=== PATIENT | female | born 2000 | race American Indian/Alaskan Native ===

== ENCOUNTER 2022-02-14 09:46 | Emergency (ER) | payer MEDICAID ==
[2022-02-14 10:02] VITALS: BP 109/80
--- NOTE | 2022-02-14 11:02 | Emergency Department Report ---
Minor Respiratory - HPI Chief Complaint: Sore Throat Stated Complaint: SORETHROAT Time Seen by Provider: 02/14/22 10:55 Duration: 2 Days Pain Location: Throat Severity: mild Minor Respiratory: Yes Sore Throat, Yes Able to Tolerate Fluids, No Rhinorrhea, No Ear Pain, No Cough, No Sick Contacts, No Hemoptysis, No Chest Pain, No Shortness of Breath, No Fever Other History: Patient is a 21-year-old female that comes to the ER with a sore throat. Reports white spots in the back of her throat. No fever but does endorse chills. Patient has no cough. No abdominal pain. No back pain. No dysuria. Patient is ambulatory, not ill nontoxic on arrival to ER ED Review of Systems ROS: Stated complaint: SORETHROAT Other details as noted in HPI Comment: All other systems reviewed and negative ED Past Medical Hx - Past Medical History Previous Medical History?: No - Surgical History Past Surgical History?: Yes Hx Appendectomy: Yes - Medications Home Medications: Home Medications Medication Instructions Recorded Confirmed Last Taken Type Amoxicillin [Trimox CAP] 500 mg PO BID #20 capsule 02/14/22 Unknown Rx Minor Respiratory Exam - Exam General: Vital signs noted. No distress. Alert and acting appropriately. HEENT: Yes Pharyngeal Erythema, Yes Pharyngeal Exudates, Yes Moist Mucous Membranes, No Rhinorrhea, No Conjuctival Injection, No Frontal Tenderness, No Maxillary Tenderness Ear: Neither TM Bulge, Neither TM Erythema, Neither EAC Pain, Neither EAC Discharge Neck: Yes Supple, No Adenopathy Lungs: Yes Good Air Exchange, No Wheezes, No Ronchi, No Stridor, No Cough, No Labored Respirations, No Retractions, No Use of Accessory Muscles, No Other Abnormal Lung Sounds Heart: Yes Regular, No Murmur Abdomen: Yes Normal Bowel Sounds, No Tenderness, No Peritoneal Signs Skin: No Rash, No Edema Neurologic: Alert and oriented, no deficits. Musculoskeletal: Unremarkable. ED Course Vital Signs 02/14/22 10:01 Temperature 98.3 F Pulse Rate 87 Respiratory 18 Rate Blood Pressure 109/80 O2 Sat by Pulse 100 Oximetry ED Medical Decision Making - Medical Decision Making Vital Signs 02/14/22 02/14/22 02/14/22 10:01 11:04 11:26 Temperature 98.3 F 98.3 F Pulse Rate 87 87 Respiratory 18 16 16 Rate Blood Pressure 109/80 O2 Sat by Pulse 100 98 100 Oximetry Lab Results 02/14/22 Range/Units Unknown Group A Strep Rapid Negative (Negative) Exudative pharyngitis on exam. ABCs intact. Taking p.o. without difficulty. Patient being discharged home on amoxicillin. Patient verbalizes understanding of discharge plan of care including diet, activity medications and follow-up. - Differential Diagnosis URI Critical care attestation.: If time is entered above; I have spent that time in minutes in the direct care of this critically ill patient, excluding procedure time. ED Disposition Clinical Impression: Exudative pharyngitis Disposition: HOME / SELF CARE / HOMELESS Is pt being admited?: No Does the pt Need Aspirin: No Condition: Stable Instructions: Pharyngitis, [id number] Additional Instructions: Medication as ordered today until gone. Motrin or Tylenol for pain or fever Prescriptions: Amoxicillin [Trimox CAP] 500 mg PO BID #20 capsule Referrals: TAWANNA OWEN MD [Primary Care Provider] - 3-5 Days Forms: Work/School Release Form(ED) Time of Disposition: 11:02
== END 2022-02-14 11:26 | disposition home or self-care (01) ==
LOC: ED 09:46
DX: J02.9 Acute pharyngitis, unspecified (principal); Z90.89 Acquired absence of other organs
CPT/HCPCS: 87116; 87430; 99282; 99283

== ENCOUNTER 2022-02-21 14:40 | Emergency (ER) | payer MEDICAID ==
[2022-02-21] MEDS ORDERED: ONDANSETRON 4 MG/2 ML INJ IV ONE (17:58)
[2022-02-21] MEDS ORDERED: SODIUM CHLORIDE 0.9% 1000 ML 1,000 ML IV ONE (17:58)
[2022-02-21 18:02] LABS: Hemoglobin 14.1 gm/dl (10.1-14.3); Mean Corpuscular HGB Conc 34 % (30-34); Mean Corpuscular Volume 89 fl (79-97); Platelet Count 298 K/mm3 (140-440); Red Cell Distribution Width 12.9 % (13.2-15.2)
--- NOTE | 2022-02-21 18:03 | Emergency Department Report ---
ED General Adult HPI - General Chief complaint: Abdominal Pain Stated complaint: VOMITTING/POSS FOOD POISONING Time Seen by Provider: 02/21/22 17:53 Source: patient Mode of arrival: Ambulatory Limitations: No Limitations - History of Present Illness Initial comments: 21-year-old female came in today with concerns of possible food poisoning. According patient she has been having vomiting and also diarrhea for the past 1 day. Patient stated that all her families are okay. Patient recently traveled to [place]. Patient denies any other symptoms except for nausea. Patient, denies any fever shortness with dizziness blurred vision lightheadedness headache tinnitus ear pain runny nose sore throat loss of taste loss of smell chest pain palpitation short of breath cough abdominal pain constipation dysuria myalgia arthralgia new rash heat or cold intolerance. Severity scale (0 -10): 6 - Related Data Previous Rx's Medication Instructions Recorded Last Taken Type Amoxicillin [Trimox CAP] 500 mg PO BID #20 capsule 02/14/22 Unknown Rx Loperamide [Imodium] 2 mg PO Q2HR 6 Days #8 capsule 02/21/22 Unknown Rx Ondansetron (Nf) [Zofran TAB] 4 mg PO Q8HR PRN 5 Days #12 tablet 02/21/22 Unknown Rx Allergies Allergy/AdvReac Type Severity Reaction Status Date / Time No Known Allergies Allergy Verified 02/21/22 17:55 ED Review of Systems ROS: Stated complaint: VOMITTING/POSS FOOD POISONING Other details as noted in HPI Comment: All other systems reviewed and negative Constitutional: see HPI Eyes: as per HPI ENT: as per HPI Respiratory: see HPI Cardiovascular: as per HPI Endocrine: see HPI Gastrointestinal: nausea, vomiting, diarrhea. denies: abdominal pain (GENERALIZED DISCOMFORT; NOT PAIN), constipation, hematemesis, melena, hematochezia Genitourinary: as per HPI Musculoskeletal: as per HPI Skin: as per HPI Neurological: as per HPI Psychiatric: as per HPI Hematological/Lymphatic: as per HPI ED Past Medical Hx - Past Medical History Previous Medical History?: No - Surgical History Hx Appendectomy: Yes - Social History Smoking Status: Never Smoker Substance Use Type: None - Medications Home Medications: Home Medications Medication Instructions Recorded Confirmed Last Taken Type Amoxicillin [Trimox CAP] 500 mg PO BID #20 capsule 02/14/22 02/21/22 Unknown Rx Loperamide [Imodium] 2 mg PO Q2HR 6 Days #8 capsule 02/21/22 Unknown Rx Ondansetron (Nf) [Zofran TAB] 4 mg PO Q8HR PRN 5 Days #12 tablet 02/21/22 Unknown Rx ED Physical Exam - General Limitations: No Limitations General appearance: alert, in no apparent distress - Head Head exam: Present: atraumatic, normal inspection - Eye Eye exam: Present: normal appearance, PERRL, EOMI Pupils: Present: normal accommodation - ENT ENT exam: Present: normal exam, normal orophraynx, mucous membranes dry - Neck Neck exam: Present: normal inspection - Respiratory Respiratory exam: Present: normal lung sounds bilaterally, respiratory distress, wheezes - Cardiovascular Cardiovascular Exam: Present: regular rate - GI/Abdominal GI/Abdominal exam: Present: soft - Extremities Exam Extremities exam: Present: normal inspection - Back Exam Back exam: Present: normal inspection - Neurological Exam Neurological exam: Present: oriented X3 - Psychiatric Psychiatric exam: Present: normal affect, normal mood - Skin Skin exam: Present: warm, dry ED Course Vital Signs 02/21/22 02/21/22 17:19 17:53 Temperature 99.1 F Pulse Rate 104 H Respiratory 16 Rate Blood Pressure 126/73 [Right] O2 Sat by Pulse 98 99 Oximetry - Reevaluation(s) Reevaluation #1: 02/21/22 19:46 SUBJECTIVELY PATIENT STATES SHE FEELS MUCH BETTER. REVIEW OF LABS WITH NO SIGNIFICANT ABNORMALITIES; WILL D/C PATIENT W/ ZOFRAN AND IMODIUM TO USE NEEDED. PATIENT INFORMED TO FOLLOW UP WITH PCP OF HER CHOICE WITHIN 3 DAYS. ED Medical Decision Making - Lab Data Result diagrams: 02/21/22 17:19 02/21/22 Unknown Critical care attestation.: If time is entered above; I have spent that time in minutes in the direct care of this critically ill patient, excluding procedure time. ED Disposition Clinical Impression: Viral gastroenteritis Disposition: 01 HOME / SELF CARE / HOMELESS Is pt being admited?: No Does the pt Need Aspirin: No Condition: Stable Instructions: Abdominal Pain (ED), Viral Gastroenteritis, Adult
[2022-02-21 18:11] LABS: Alanine Aminotransferase 13 units/L (7-56); Blood Urea Nitrogen 9 mg/dL (7-17); Calcium 9.7 mg/dL (8.4-10.2); Hemolysis Index 11
[2022-02-21 18:15] LABS: BUN/Creatinine Ratio 13; Bilirubin,Direct < 0.2 mg/dL (0-0.2)
[2022-02-21 18:59] LABS: Basophils % (Manual) 0 % (0.0-1.8); Total Cells Counted 100
[2022-02-21 19:00] LABS: Eosinophils % (Manual) 0 % (0.0-4.3)
[2022-02-21 20:01] VITALS: BP 121/84
[2022-02-21] MEDS ORDERED: ONDANSETRON 4 MG/2 ML INJ ONE (20:07)
[2022-02-21] MEDS ORDERED: ONDANSETRON 4 MG ODT TAB PO ONE (20:12)
== END 2022-02-21 20:49 | disposition home or self-care (01) ==
LOC: ED 14:40
DX: A08.4 Viral intestinal infection, unspecified (principal); Z90.89 Acquired absence of other organs
CPT/HCPCS: 36415; 80048; 80076; 83690; 83735; 85007; 85025; 96361; 96374; 99283; J2405; J7030; J3490; Q0162